=== PATIENT | male | born 1985 | race Caucasian/White ===

== ENCOUNTER 2024-06-18 02:28 | Emergency (ER) | payer SELFPAY ==
[~2024-06-18] VITALS: Ht 180.3 cm; Wt 136.1 kg
[2024-06-18] MEDS: IV NS 0.9% 1,000 ML IV ONE (03:09)
[2024-06-18 03:13] LABS: BASOPHILS % (AUTO) 0.4 % (0.0-2.0); EOSINOPHILS # (AUTO) 0.2 K/uL (0.0-0.7); EOSINOPHILS % (AUTO) 2.2 % (0.0-6.0); HEMATOCRIT 41 % (39-51); HEMOGLOBIN 13.2 g/dL (13.5-17.5); LYMPHOCYTES % (AUTO) 40.9 % (20.0-44.0); MEAN CORPUSCULAR HEMOGLOBIN 29 PG (26.0-33.0); MEAN CORPUSCULAR HGB CONC 33 g/dl (31.0-36.0); MEAN CORPUSCULAR VOLUME 89 fL (80-96); MONOCYTES # (AUTO) 0.5 K/uL (0.1-1.30); MONOCYTES % (AUTO) 6.3 % (2.0-12.0); NEUTROPHILS # (AUTO) 3.7 K/uL (1.8-8.9); NEUTROPHILS % (AUTO) 50.2 % (43.0-81.0); PLATELET COUNT (AUTO) 226 K/uL (150-450); RED BLOOD CELL COUNT(AUTO) 4.53 MIL/uL (4.5-6.0); RED CELL DISTRIBUTION WIDTH 13.4 % (11.5-15.0); WHITE BLOOD COUNT (AUTO) 7.4 K/uL (4.3-11.0)
[2024-06-18 03:23] LABS: CALCIUM, SERUM 8.2 mg/dL (8.5-10.1); CREATININE 1.2 mg/dL (0.6-1.3); POTASSIUM 3.7 mmol/L (3.5-5.1)
[2024-06-18 03:30] LABS: ALBUMIN 3.4 g/dL (3.4-5.0); BILIRUBIN,TOTAL 0.2 mg/dL (0.2-1.0); MAGNESIUM 2.2 mg/dL (1.8-2.4)
[2024-06-18 04:02] LABS: APPEARANCE,URINE CLEAR (CLEAR); BILIRUBIN,URINE NEGATIVE (NEGATIVE); BLOOD, URINE NEGATIVE Ery/uL (NEGATIVE); COLOR,URINE YELLOW (YELLOW); KETONES,URINE 1+ mg/dL (NEGATIVE); LEUKOCYTE ESTERASE ,URINE NEGATIVE (NEGATIVE); NITRITE, URINE NEGATIVE (NEGATIVE); PROTEIN,URINE NEGATIVE (NEGATIVE); UGLUCOSE NEGATIVE (NEGATIVE); UROBILINOGEN,URINE 0.2 EU/dL (0.2)
[2024-06-18 04:17] LABS: AMPHETAMINE, URINE NEGATIVE (NEGATIVE); BARBITURATE, URINE NEGATIVE (NEGATIVE); BENZODIAZEPINE, URINE NEGATIVE (NEGATIVE); CANNABINOID, URINE NEGATIVE (NEGATIVE); COCCAINE, URINE NEGATIVE (NEGATIVE); OPIATE, URINE NEGATIVE (NEGATIVE); PHENCYCLIDINE SCREEN,URINE NEGATIVE (NEGATIVE)
[2024-06-18 05:21] LABS: ADD URINE CULTURE NO; BACTERIA,URINE None seen /HPF (None Seen); RBC,URINE NONE SEEN /HPF (0-2); SQUAMOUS EPITHELIAL CELL,UR None Seen /HPF (None Seen); WBC,URINE NONE SEEN /HPF (0-3)
[2024-06-18 05:39] VITALS: BP 121/78; TEMP 98; O2SAT 99
== END 2024-06-18 05:39 | disposition home or self-care (01) ==
LOC: ER 02:31
DX: F10.129 Alcohol abuse with intoxication, unspecified (principal); I10 Essential (primary) hypertension; Y90.8 Blood alcohol level of 240 mg/100 ml or more
CPT/HCPCS: 99283; 96360; 85025; 83735; 81001; 36415; 80053; 80320; 80307; 98960; J7030; G0480

== ENCOUNTER 2025-05-18 03:37 | Emergency (ER) | payer BC ==
[~2025-05-18] VITALS: Ht 172.7 cm; Wt 108.9 kg
[2025-05-18 05:36] LABS: PLATELET COUNT (AUTO) 303 K/uL (150-450); RED BLOOD CELL COUNT(AUTO) 4.46 MIL/uL (4.5-6.0); RED CELL DISTRIBUTION WIDTH 12.7 % (11.5-15.0); WHITE BLOOD COUNT (AUTO) 16.2 K/uL (4.3-11.0)
[2025-05-18 05:45] LABS: CALCIUM, SERUM 9.2 mg/dL (8.5-10.1); CREATININE 1.2 mg/dL (0.6-1.3); SODIUM SERUM 133.0 mmol/L (136-145); UREA NITROGEN, BLOOD 9.0 mg/dL (7-18)
[2025-05-18] MEDS ORDERED: CIPROFLOXACIN IV RTU 200 ML IV ONE (06:41)
[2025-05-18] MEDS ORDERED: METRONIDAZOLE 500MG/ NS 100ML 100 ML IV ONE (06:41)
[2025-05-18] MEDS ORDERED: IBUPROFEN 400 MG TABLET ONE (06:42)
[2025-05-18] MEDS ORDERED: MORPHINE SULFATE INJ 4 MG/ML DISP.SYRIN ONE ×2 (06:47→08:26)
[2025-05-18] MEDS ORDERED: ONDANSETRON HCL/PF 4 MG/2 ML VIAL ONE (06:48)
[2025-05-18] MEDS: METRONIDAZOLE 500MG/ NS 100ML 500 MG in PREMIX 1 EA IV SCH (06:50)
[2025-05-18] MEDS: IV NS 0.9% 1,000 ML BAG IV ONE (06:50)
[2025-05-18] MEDS: MORPHINE SULFATE INJ 2 MG/ML DISP.SYRIN IV ONE ×2 (06:53→08:40)
[2025-05-18] MEDS: ONDANSETRON HCL/PF - ER 4 MG/2 ML VIAL IV ONE (06:53)
[2025-05-18] MEDS: IBUPROFEN 400 MG TABLET PO ONE (06:53)
[2025-05-18] MEDS ORDERED: CT SWABBABLE VALVE TRANS SET 1 EA INFUS.SET MC ONE (07:19)
[2025-05-18] MEDS ORDERED: IOHEXOL-350 100 ML VIAL IV ONE (07:19)
[2025-05-18] MEDS ORDERED: IV NS 0.9% 250 ML IV ONE (07:19)
[2025-05-18] MEDS: CIPROFLOXACIN IV RTU 400 MG in PREMIX 1 EA IV SCH (08:10)
[2025-05-18] MEDS ORDERED: LET SOLN TOPICAL 8 ML UDC TP ONE (08:26)
[2025-05-18] MEDS: LET SOLN TOPICAL 8 ML UDC TP ONE (08:40)
[2025-05-18] MEDS ORDERED: LIDOCAINE 1%-EPI 1:100,000 20 ML VIAL ONE (09:06)
[2025-05-18] MEDS: LIDOCAINE 1%-EPI 1:100,000 20 ML VIAL TP ONE (09:25)
[2025-05-18] MEDS ORDERED: ACET-73 PO (10:02)
[2025-05-18] MEDS ORDERED: CIPR-262 PO (10:02)
[2025-05-18] MEDS ORDERED: IBUP-1957 PO (10:02)
[2025-05-18] MEDS ORDERED: METR500T PO (10:02)
[2025-05-18 10:22] VITALS: BP 123/76; TEMP 98.2; O2SAT 98
== END 2025-05-18 10:23 | disposition home or self-care (01) ==
LOC: ER 03:41
DX: K61.1 Rectal abscess (principal); I10 Essential (primary) hypertension; Z60.2 Problems related to living alone
CPT/HCPCS: 46040; 99285; 96365; 72193; 96375; 96367; 85025; 80048; 87040 ×2; 83605; 36415; 96376; J2270 ×2; J2405 ×2; J7030; J7050; A4216; A6403 ×3; J0744; J3490; Q9967